=== PATIENT | male | born 1975 | race American Indian/Alaskan Native ===

== ENCOUNTER 2019-01-12 09:29 | Emergency (ER) | payer SELFPAY ==
--- NOTE | 2019-01-12 11:48 | Emergency Department Report ---
ED General Adult HPI - General Chief complaint: Extremity Injury, Lower Stated complaint: LT KNEE INJURY Time Seen by Provider: 01/12/19 11:29 Source: patient Mode of arrival: Ambulatory Limitations: No Limitations - History of Present Illness Initial comments: This is a 43-year-old male who states he fell down stairs. He is here with left knee pain. However, he principally states that he is able to do his job this evening. He would like a return to work slip. He does not report any other injury. -: Gradual Location: left, lower extremity Quality: aching Consistency: intermittent Improves with: none Worsens with: none Associated Symptoms: denies other symptoms Treatments Prior to Arrival: none - Related Data Allergies Allergy/AdvReac Type Severity Reaction Status Date / Time No Known Allergies Allergy Verified 01/12/19 09:38 ED Review of Systems ROS: Stated complaint: LT KNEE INJURY Other details as noted in HPI Constitutional: denies: chills, fever Eyes: denies: eye pain, eye discharge, vision change ENT: denies: ear pain, throat pain Respiratory: denies: cough, shortness of breath, wheezing Cardiovascular: denies: chest pain, palpitations Endocrine: no symptoms reported Gastrointestinal: denies: abdominal pain, nausea, diarrhea Genitourinary: denies: urgency, dysuria Musculoskeletal: as per HPI, arthralgia. denies: back pain, joint swelling Skin: denies: rash, lesions Neurological: denies: headache, weakness, paresthesias Psychiatric: denies: anxiety, depression Hematological/Lymphatic: denies: easy bleeding, easy bruising ED Past Medical Hx - Past Medical History Previous Medical History?: No - Surgical History Past Surgical History?: No - Social History Smoking Status: Current Every Day Smoker Substance Use Type: Alcohol, Marijuana ED Physical Exam - General Limitations: No Limitations - Head Head exam: Present: atraumatic - Eye Eye exam: Present: normal appearance - ENT ENT exam: Present: mucous membranes moist - Neck Neck exam: Present: normal inspection - External exam: Present: other - Extremities Exam Extremities exam: Present: normal inspection, other (full range of motion of the left knee, no effusion, stable to maneuver testing, nontender) - Neurological Exam Neurological exam: Present: CN II-XII intact. Absent: motor sensory deficit - Psychiatric Psychiatric exam: Present: normal affect, normal mood - Skin Skin exam: Present: warm, dry, intact, normal color. Absent: rash ED Course Vital Signs 01/12/19 09:34 Temperature 98.8 F Pulse Rate 124 H Respiratory 18 Rate Blood Pressure 129/94 O2 Sat by Pulse 99 Oximetry - Reevaluation(s) Reevaluation #1: The patient literally shuffled about his examination area to demonstrate to me that he has full use of his right knee mimicking what he does at work. He seemed to have no problem. 01/12/19 11:47 ED Medical Decision Making - Radiology Data Radiology results: image reviewed (knee x-ray appears normal) Critical care attestation.: If time is entered above; I have spent that time in minutes in the direct care of this critically ill patient, excluding procedure time. ED Disposition Clinical Impression: Strain of left knee Qualifiers: Encounter type: initial encounter Qualified Code(s): S86.912A - Strain of unspecified muscle(s) and tendon(s) at lower leg level, left leg, initial encounter Disposition: DC-01 TO HOME OR SELFCARE Is pt being admited?: No Does the pt Need Aspirin: No Condition: Stable Instructions: Knee Pain (ED) Additional Instructions: Work as tolerated. Do not excessively strain your knee. If you have any persistent problem. See orthopedist listed. Motrin [id number] for soreness as needed. Referrals: ELIGIO BOGGS MD [Staff Physician] - 3-5 Days Forms: Work/School Release Form(ED) Time of Disposition: 12:09
--- NOTE | 2019-01-12 12:01 | XRay Report ---
LEFT KNEE HISTORY: Pain. COMPARISON: None. TECHNIQUE: 3 views of the left knee obtained. FINDINGS: Bones: No fracture or dislocation. Mild osteopenia. Joint spaces: Maintained. Soft tissues: No significant abnormality. No joint effusion. Additional findings: None. IMPRESSION: 1. No significant abnormality. Signer Name: Javad Duque MD Signed: 01/12/2019 11:57 AM Workstation Name: [id number]
[2019-01-12 12:50] VITALS: BP 130/90
== END 2019-01-12 12:44 | disposition home or self-care (01) ==
LOC: EDBD → ED 09:29
DX: S86.912A Strain of unspecified muscle(s) and tendon(s) at lower leg level, left leg, initial encounter (principal); F17.200 Nicotine dependence, unspecified, uncomplicated; F12.10 Cannabis abuse, uncomplicated; W10.8XXA Fall (on) (from) other stairs and steps, initial encounter; Y93.89 Activity, other specified; Y92.89 Other specified places as the place of occurrence of the external cause; Y99.8 Other external cause status

== ENCOUNTER 2019-02-10 15:52 | Emergency (ER) | payer SELFPAY ==
--- NOTE | 2019-02-10 15:59 | Emergency Department Report ---
Blank Doc - Documentation Documentation: 43-year-old male that presents with left knee pain and swelling s/p fall. This initial assessment/diagnostic orders/clinical plan/treatment(s) is/are subject to change based on patient's health status, clinical progression and re- assessment by fellow clinical providers in the ED. Further treatment and workup at subsequent clinical providers discretion. Patient/guardians urged not to elope from the ED as their condition may be serious if not clinically assessed and managed. Initial orders include: 1- Patient sent to [facility] for further evaluation and treatment 2- xrays
[2019-02-10 16:01] VITALS: BP 121/85
--- NOTE | 2019-02-10 16:58 | XRay Report ---
XR knee 3V LT INDICATION / CLINICAL INFORMATION: Left knee pain. COMPARISON: None available. FINDINGS: BONES/JOINT(S): No acute fracture or subluxation. Chronic calcification adjacent to the origin of the medial collateral ligament suggests remote prior injury. No significant joint effusion. No significa nt degenerative change. SOFT TISSUES: No significant abnormality. ADDITIONAL FINDINGS: None. Signer Name: Caleb Hernandez MD Signed: 02/10/2019 4:54 PM Workstation Name: [id number]
--- NOTE | 2019-02-10 17:33 | Emergency Department Report ---
ED Lower Extremity HPI - General Chief Complaint: Extremity Injury, Lower Stated Complaint: L KNEE PAIN/POPPING Time Seen by Provider: 02/10/19 15:58 Source: patient Mode of arrival: Ambulatory Limitations: No Limitations - History of Present Illness Initial Comments: A 43-year-old male patient came to the emergency room complaining the pain and popping to his left knee. He said he fell and injured it one week ago and he can barely weight-bear on his knee. He said he had to leave work to come to the hospital because his knee hurt. Pain is 8 out of 10 achy and report that is sounds like the bone is rubbing on the bone. He states that he seek an [id number]-vtc-[id number] pain medication without any relief. Patient denies any medical problems. Denies any numbness or tingling to extremities. Pain is worse with movement and better with rest and he said he use Feroz wrap to area to help with pain. MD Complaint: knee injury Onset/Timin -: week(s) Injury: Knee: Left (Location: Lungs) Type of Injury: other (he reports that he fell and hit knee on hard surface) Place: street/outdoors Severity: severe Severity scale (0 -10): 8 Improves With: immobilization, rest Worsens With: weight bearing, movement Context: fall Associated Symptoms: snap/pop sensation, able to partially bear weight. denies: swelling, numbness, tingling Treatments Prior to Arrival: spinal immobilization (Feroz bandage), other - Related Data Previous Rx's Medication Instructions Recorded Last Taken Type Ibuprofen [Motrin] 800 mg PO Q8HR PRN #12 tablet 02/10/19 Unknown Rx Allergies Allergy/AdvReac Type Severity Reaction Status Date / Time No Known Allergies Allergy Verified 01/12/19 09:38 ED Review of Systems ROS: Stated complaint: L KNEE PAIN/POPPING Other details as noted in HPI Constitutional: denies: chills, fever Respiratory: denies: cough, shortness of breath, wheezing Cardiovascular: denies: chest pain, palpitations, edema, syncope Gastrointestinal: denies: nausea, vomiting Musculoskeletal: arthralgia. denies: back pain, joint swelling, myalgia Skin: denies: rash Neurological: abnormal gait (due to knee pain). denies: headache, numbness, paresthesias, vertigo ED Past Medical Hx - Past Medical History Previous Medical History?: No - Surgical History Past Surgical History?: No - Family History Family history: hypertension - Social History Smoking Status: Current Every Day Smoker Substance Use Type: None - Medications Home Medications: Home Medications Medication Instructions Recorded Confirmed Last Taken Type Ibuprofen [Motrin] 800 mg PO Q8HR PRN #12 tablet 02/10/19 Unknown Rx ED Physical Exam - General Limitations: No Limitations General appearance: alert - Head Head exam: Present: atraumatic, normocephalic - Eye Eye exam: Present: normal appearance, PERRL - ENT ENT exam: Present: normal exam - Neck Neck exam: Present: normal inspection, full ROM. Absent: tenderness - Respiratory Respiratory exam: Present: normal lung sounds bilaterally. Absent: respiratory distress, chest wall tenderness - Cardiovascular Cardiovascular Exam: Present: normal rhythm, tachycardia, normal heart sounds - Extremities Exam Extremities exam: Present: normal inspection, full ROM (limited range of motion to left knee. Pain worse with flexion of left knee.), tenderness (anterior left knee), normal capillary refill, other (No cce. + 2 pulses in all extremities, no neurovascular compromise). Absent: pedal edema, joint swelling, calf tenderness - Expanded Lower Extremity Exam Left Hip exam: Present: normal inspection, full ROM, pelvic stability. Absent: tenderness, swelling Upper Leg exam: Present: normal inspection, full ROM. Absent: tenderness, swelling, crepidus, erythema Knee exam: Present: normal inspection, tenderness (anterior left knee), crepidus, full knee extension (but reports pain). Absent: full ROM (range of motion worse with flexion to left knee), swelling, abrasion, laceration, ecchymosis, deformity, dislocation, erythema, effusion, pain w/ pronation/supination, pain/laxity with valgus, pain/laxity with varus Lower Leg exam: Present: normal inspection, full ROM. Absent: tenderness, swelling, abrasion, laceration Ankle exam: Present: normal inspection. Absent: full ROM, tenderness, crepidus Foot/Toe exam: Present: normal inspection, full ROM. Absent: tenderness, swelling, abrasion, laceration, ecchymosis, deformity, crepidus, dislocation, erythema, calcaneal tenderness, tenderness at base of 5th metatarsal, nail avulsion, subungual hematoma Neuro vascular tendon exam: Present: no vascular compromise Gait: Positive: antalgic - Back Exam Back exam: Present: normal inspection, full ROM, other ( ambulates with a limp to the left lower extremity). Absent: tenderness - Neurological Exam Neurological exam: Present: alert, oriented X3 - Psychiatric Psychiatric exam: Present: normal affect, normal mood - Skin Skin exam: Present: warm, dry, intact, normal color. Absent: rash ED Course Vital Signs 02/10/19 15:59 Temperature 99 F Pulse Rate 107 H Respiratory 18 Rate Blood Pressure 121/85 O2 Sat by Pulse 94 Oximetry Vital Signs 02/10/19 02/10/19 15:59 18:30 Temperature 99 F Pulse Rate 107 H 72 Respiratory 18 Rate Blood Pressure 121/85 O2 Sat by Pulse 94 Oximetry - Reevaluation(s) Reevaluation #1: 02/10/19 18:36 Patient received Toradol 30 mg IM in the emergency room for any pain which brought his pain noted to attend. - Orthopedic Splinting/Casting Injury #1 Side: left Lower Extremity Injury Location: knee Lower Extremity Immobilizer: knee immobilizer (patient with Velcro knee brace is status post placement he said the pain is better and is able to ambulate with minimal limp.) ED Lower Extremity MDM - Radiology Data Radiology results: report reviewed Left knee x-ray dictated by radiologist's report reviewed by myself. Please see details below Findings [facility] [address] [place] [address] XRay Report Signed Patient: MADDI MELVIN MR#: [id number] : 1975 Acct:[id number] Age/Sex: 43 / M ADM Date: 02/10/19 Loc: ED Attending Dr: Ordering Physician: CONCHITA PATIÑO NP Date of Service: 02/10/19 Procedure(s): XR knee 3V LT Accession Number(s): [id number] cc: CONCHITA PATIÑO NP Fluoro Time In Minutes: XR knee 3V LT INDICATION / CLINICAL INFORMATION: Left knee pain. COMPARISON: None available. FINDINGS: BONES/JOINT(S): No acute fracture or subluxation. Chronic calcification adjacent to the origin of the medial collateral ligament suggests remote prior injury. No significant joint effusion. No significant degenerative change. SOFT TISSUES: No significant abnormality. ADDITIONAL FINDINGS: None. Signer Name: Caleb Hernandez MD Signed: 02/10/2019 4:54 PM Workstation Name: [id number] Transcribed By: SEAN Dictated By: Caleb Hernandez MD Electronically Authenticated By: Caleb Hernandez MD Signed Date/Time: 02/10/191653 DD/ 52 TD/TT: - Medical Decision Making This is a 43 old male with knee pain for over week after falling and reports that he is in place in Feroz wrap site but still with pain. X-ray of left knee dictated by radiologist report reviewed by myself and no acute finding but patient which showed joint disease. Patient given Toradol 30 mg IM in the emergency room which up to stand and left Velcro knee brace placed and upon reevaluation he is able to ambulate with minimal pain. He says pain is better. Vital signs are stable he is afebrile and pain is better and discharged home with prescription for Motrin and to follow up with orthopedic doctor in 2 days. discharged home with prescription for Motrin - Differential Diagnosis fracture versus dislocation versus DJD, MSK pain Critical care attestation.: If time is entered above; I have spent that time in minutes in the direct care of this critically ill patient, excluding procedure time. ED Disposition Clinical Impression: Arthralgia of left knee Left knee DJD Qualifiers: Osteoarthritis type: unspecified Qualified Code(s): M17.12 - Unilateral primary osteoarthritis, left knee Disposition: - TO HOME OR SELFCARE Is pt being admited?: No Does the pt Need Aspirin: No Condition: Stable Instructions: Arthralgia (ED), Knee Pain (ED), Knee Exercises (GEN), Osteoarthritis (ED) Additional Instructions: These follow-up with orthopedic doctor and primary care regarding arthritis a few knee. There fell current knee brace when climbing and stairs, long walk-in, prolonged standing. You can remove at night. Take Motrin for pain. Please take this medication. As it can cause irritation to stomach lining Read discharge instruction and osteoarthritis Referrals: [facility] [Outside] - 02/12/19 ELIGIO BOGGS MD [Staff Physician] - 02/12/19 Forms: Work/School Release Form(ED)
[2019-02-10] MEDS ORDERED: KETOROLAC 60 MG/2 ML INJ IM ONE (17:57)
== END 2019-02-10 18:58 | disposition home or self-care (01) ==
LOC: ED 15:52
DX: M17.12 Unilateral primary osteoarthritis, left knee (principal)
CPT/HCPCS: 29505; 73562; 96372; 99283; J1885